=== PATIENT | female | born 1970 | race Hispanic/Latino ===

== ENCOUNTER → 2025-01-03 | Outpatient (CLI) | payer OTHER ==
--- NOTE | 2025-01-04 07:25 | HMCIMG ---
EXAMINATION: DUPLEX ULTRASOUND EXAMINATION OF THE BILATERAL LOWER EXTREMITY ARTERIES. CLINICAL HISTORY: PVD. COMPARISON: None. FINDINGS: Peak systolic velocities within the right lower arteries are as follows: Common femoral artery: 120 cm/s. Superficial femoral artery: 175 cm/s at proximal, 139 cm/s at mid, and 167 cm/s at distal segments. Popliteal artery: 101 cm/s at proximal and 131 cm/s at distal segments. Posterior tibial artery: 125 cm/s. Anterior tibial artery: 101 cm/s. Dorsalis pedis artery: 108 cm/s. The right lower limb arteries demonstrate triphasic waveforms in all arteries. Peak systolic velocities within the left lower arteries are as follows: Common femoral artery: 134 cm/s. Superficial femoral artery: 154 cm/s at proximal, 144 cm/s at mid, and 144 cm/s at distal segments. Popliteal artery: 135 cm/s at proximal and 110 cm/s at distal segments. Posterior tibial artery: 77 cm/s. Anterior tibial artery: 101 cm/s. Dorsalis pedis artery: 106 cm/s. The left lower limb arteries demonstrate triphasic waveforms in all arteries. There is intimal wall thickening in both the lower limb arteries. IMPRESSION: Mild intimal wall thickening in both the lower limb arteries. Both lower limb arteries demonstrate triphasic waveforms. No flow limiting lesions. /[place]
== END | disposition home or self-care (01) ==
LOC: RAH 14:15
PROVIDERS: ATTEND Family Medicine
DX: I73.9 Peripheral vascular disease, unspecified (principal)
CPT/HCPCS: 93925